=== PATIENT | female | born 1965 | race American Indian/Alaskan Native ===

== ENCOUNTER → 2018-04-10 | Outpatient (CLI) | payer OTHER ==
--- NOTE | 2018-04-10 12:06 | Mammography Report ---
BILATERAL DIGITAL SCREENING MAMMOGRAM with CAD and DIGITAL BREAST TOMOSYNTHESIS (DBT) : 04/10/18 00:00:00 CLINICAL: Routine screening. COMPARISON: FINDINGS: The breasts are mostly fatty with a few scattered bilateral fibroglandular densities. No mass, architectural distortion or suspicious calcifications. IMPRESSION: No mammographic evidence of malignancy. BI-RADS CATEGORY: 1 - - Negative RECOMMENDATION: Routine mammographic screening in one year. COMMENT: Patient follow-up letters are generated by our [employer] application.
== END | disposition home or self-care (01) ==
LOC: SPVWC 10:57
PROVIDERS: ATTEND Surgery
DX: Z12.31 Encounter for screening mammogram for malignant neoplasm of breast (principal)
CPT/HCPCS: 77063; 77067

== ENCOUNTER 2020-09-08 08:06 | Outpatient (CLI) | payer OTHER ==
--- NOTE | 2020-09-08 09:07 | Ultrasound Report ---
ULTRASOUND BREAST LEFT LIMITED, 09/08/2020 CLINICAL INFORMATION / INDICATION: Palpable left axillary abnormality. TECHNIQUE: Targeted ultrasound evaluation was performed of the area of interest. COMPARISON: Screening mammogram from 04/27/2020 FINDINGS: Multiple left axillary nodes measuring up to 1 cm in short axis dimension are seen with cortical thic kening measuring up to 6 mm. No other significant abnormality. IMPRESSION: Indeterminate left axillary nodes without a correlate on the prior mammogram. A follow-up limited left breast ultrasound with focus on the axilla in 3 months is recommended. Follow up recommendation: Short term follow up in 3 months. BI-RADS Category 3: Probably Benign. Followup in 3 months. A normal or "negative" report should not preclude biopsy or follow-up of a clinically suspicious find ing. Signer Name: Darien Calabrese MD Signed: 09/08/2020 9:02 AM Workstation Name: [id number]
== END 2020-09-08 08:07 | disposition home or self-care (01) ==
LOC: SPVWC 08:06
PROVIDERS: ATTEND Surgery
DX: R92.8 Other abnormal and inconclusive findings on diagnostic imaging of breast (principal)

== ENCOUNTER 2020-09-30 09:30 | Outpatient (CLI) | payer OTHER ==
--- NOTE | 2020-09-30 11:51 | Ultrasound Report ---
ULTRASOUND-GUIDED CORE NEEDLE BIOPSY LEFT AXILLA WITH CLIP PLACEMENT INDICATION: Left axillary lymphadenopathy. COMPARISON: 09/08/2020. FINDINGS: Informed consent was obtained. The enlarged lymph nodes within the left axilla were identified with u ltrasound. The overlying skin was cleansed with chloro prep and local anesthesia was obtained with a 1% lidocaine solution. Under ultrasound guidance a 14-gauge spring loaded core biopsy needle was adva nced to the lesion. A total of 6 core samples were obtained. A U-shaped biopsy marker was placed to m sheriek the site of the biopsy. Specimen samples were placed in formalin and sent to pathology for analys is. Samples were also sent in RPMI for possible flow cytometry analysis. Patient tolerated the procedure well and no immediate complications were identified. IMPRESSION: Technically successful ultrasound-guided core biopsy of left axillary lymph node with placement of a U-shaped biopsy marker. An addendum will be added to this report with pathology results. Signer Name: Daniel Saucedo MD Signed: 09/30/2020 11:47 AM Workstation Name: [id number]
== END 2020-09-30 09:31 | disposition home or self-care (01) ==
LOC: SPVWC 09:30
PROVIDERS: ATTEND Surgery
DX: I89.8 Other specified noninfective disorders of lymphatic vessels and lymph nodes (principal)
CPT/HCPCS: 38505; 76942; 88305